=== PATIENT | female | born 1980 | race Caucasian/White ===

== ENCOUNTER 2023-04-04 07:17 | Inpatient (IN) | payer OTHER ==
[2023-04-04] MEDS ORDERED: SODIUM CHLORIDE 1,701 ML IV ONE (07:59)
[2023-04-04] MEDS ORDERED: KETOROLAC TROMETHAMINE 15 MG/ML VIAL IVPUSH ONE (08:01)
[2023-04-04] MEDS ORDERED: KETOROLAC TROMETHAMINE 15 MG/ML VIAL ONE (08:33)
[2023-04-04 09:11] LABS: VENOUS BASE EXCESS 1.2 mmol/L (-2-2); VENOUS O2 SATURATION 51.1 % (70-80); VENOUS PCO2 42.5 mmHg (38-52); VENOUS PH 7.406 (7.310-7.410)
[2023-04-04 09:13] LABS: INR 1.48 (0.83-1.09); PROTHROMBIN TIME (PATIENT) 17.1 SEC (9.7-13.0)
[2023-04-04 09:16] LABS: ACTIVATED PTT 28.2 SECONDS (25.2-36.5); EPI CELLS >36 /uL (0-25.1); HYALINE CASTS 0 /uL (0-3.1); PH,URINE 5.5 (5.0-8.0); URINE APPEARANCE CLOUDY; URINE BACTERIA >9,000 /uL (0-1359); URINE BILIRUBIN 1+ (NEGATIVE); URINE COLOR DK YELLOW; URINE GLUCOSE (UA) NEGATIVE (NEGATIVE); URINE KETONE 2+ (NEGATIVE); URINE LEUK ESTERASE 3+ (NEGATIVE); URINE NITRITE POSITIVE (NEGATIVE); URINE PROTEIN 2+ (NEGATIVE); URINE RBC 207 /uL (0-23.9); URINE UROBILINOGEN 4.0 E.U/dl mg/dL (0.2-1.0); URINE WBC 1933 /uL (0-25.8)
[2023-04-04 09:18] LABS: BASO % 0.2 % (0-2.0); CHLORIDE 102 mmol/L (98-107); HEMATOCRIT 30.8 % (32.4-45.2); HEMOGLOBIN 10.5 GM/dL (10.7-15.3); LYMPH % 7.1 % (8-40); MCH 31.4 pg (25.7-33.7); MCHC 34.1 g/dl (32.0-36.0); MEAN CELL VOLUME 91.9 fl (80-96); MEAN PLT VOLUME 8.3 fl (7.5-11.1); MONO % 10.6 % (3.8-10.2); NEUT % 82.1 % (42.8-82.8); PLATELET COUNT 180 10^3/uL (134-434); POTASSIUM 3.4 mmol/L (3.5-5.1); RBC 3.35 M/mm3 (3.60-5.2); RDW 12.3 % (11.6-15.6); SODIUM 135 mmol/L (136-145); WHITE BLOOD COUNT 8.9 K/mm3 (4.0-10.0)
[2023-04-04 09:22] LABS: ALBUMIN 3.5 g/dl (3.4-5.0); ANION GAP 7 MMOL/L (8-16); CO2 26 mmol/L (21-32); GLUCOSE,RANDOM 110 mg/dL (74-106)
[2023-04-04 09:24] LABS: CREATININE 0.9 mg/dL (0.55-1.3); SGOT/AST 33 U/L (15-37); SGPT/ALT 51 U/L (13-61)
[2023-04-04 09:26] LABS: TOT PROT 7.6 g/dl (6.4-8.2)
[2023-04-04 09:28] LABS: ALK PHOS 55 U/L (45-117)
[2023-04-04] MEDS ORDERED: CEFTRIAXONE 2,000 MG in DEXTROSE 5%-WATER - 50 ML IVPB ONE (10:00)
[2023-04-04] MEDS ORDERED: CEFTRIAXONE 2 GM/100 ML BAG IVPB ONE (10:07)
[2023-04-04] MEDS ORDERED: DEXTROSE 5%-0.45% SALINE 1,000 ML IV SCH (14:15)
[2023-04-04] MEDS ORDERED: KETOROLAC TROMETHAMINE 15 MG/ML VIAL IVPUSH PRN (15:21)
[2023-04-04] MEDS ORDERED: ACETAMINOPHEN 1000 MG/100 ML BAG IVPB PRN (15:23)
[2023-04-04] MEDS ORDERED: ONDANSETRON 4 MG/2 ML VIAL IVPUSH PRN (16:37)
[2023-04-04] MEDS ORDERED: LACTATED RINGERS SOLUTION 1,000 ML/1,000 ML INFUS.BAG IV SCH (21:30)
[2023-04-04 22:46] VITALS: RESP 18
[2023-04-05] MEDS ORDERED: ENOXAPARIN NA (PORCINE) 40 MG/0.4 ML DISP.SYRIN SQ SCH (10:00)
[2023-04-05] MEDS: CEFTRIAXONE 1 GM in DEXTROSE 5%-WATER - 50 ML IVPB SCH (10:12)
[2023-04-05 11:07] LABS: BASO % 0.6 % (0-2.0); EOS % 0.3 % (0-4.5); HEMATOCRIT 29.1 % (32.4-45.2); HEMOGLOBIN 10.4 GM/dL (10.7-15.3); LYMPH % 12.8 % (8-40); MCH 32.3 pg (25.7-33.7); MCHC 35.9 g/dl (32.0-36.0); MEAN PLT VOLUME 8.2 fl (7.5-11.1); MONO % 7.2 % (3.8-10.2); NEUT % 79.1 % (42.8-82.8); PLATELET COUNT 161 10^3/uL (134-434); RBC 3.23 M/mm3 (3.60-5.2); RDW 12.8 % (11.6-15.6); WHITE BLOOD COUNT 8.1 K/mm3 (4.0-10.0)
[2023-04-05 11:38] LABS: POTASSIUM 3.2 mmol/L (3.5-5.1)
[2023-04-05 11:47] LABS: CALCIUM 8.7 mg/dL (8.5-10.1)
[2023-04-05 11:49] LABS: ALBUMIN 2.9 g/dl (3.4-5.0); BLOOD UREA NITROGEN 6.6 mg/dL (7-18); MAGNESIUM 2.1 mg/dL (1.8-2.4)
[2023-04-05 11:51] LABS: CREATININE 0.6 mg/dL (0.55-1.3); PHOSPHOROUS 1.9 mg/dL (2.5-4.9)
[2023-04-05 11:52] LABS: BILIRUBIN,TOTAL 0.5 mg/dL (0.2-1); TOT PROT 6.4 g/dl (6.4-8.2)
[2023-04-05] MEDS ORDERED: POTASSIUM CHLORIDE ORAL LIQUID 20 MEQ/15 ML PO ONE (12:50)
[2023-04-05] MEDS ORDERED: NAPH,MB-DB/K PH,MBDB POWDER PACKET PO ONE (12:50)
[2023-04-05] MEDS: KCL 10 MEQ IVPB 10 MEQ/100 ML INFUS.BAG IVPB SCH ×3 (13:11→15:27)
[2023-04-06] MEDS ORDERED: ACETAMINOPHEN 325 MG TABLET (FP) PO PRN (08:11)
[2023-04-06] MEDS ORDERED: KETOROLAC TROMETHAMINE 15 MG/ML VIAL IVPUSH PRN (08:11)
[2023-04-06] MEDS ORDERED: ENOXAPARIN NA (PORCINE) 40 MG/0.4 ML DISP.SYRIN SQ SCH (10:00)
[2023-04-06] MEDS: CEFTRIAXONE 1 GM in DEXTROSE 5%-WATER - 50 ML IVPB SCH (10:52)
[2023-04-06 11:21] LABS: HEMATOCRIT 27.8 % (32.4-45.2); HEMOGLOBIN 9.7 GM/dL (10.7-15.3); MCH 31.3 pg (25.7-33.7); MCHC 34.7 g/dl (32.0-36.0); MEAN PLT VOLUME 8.1 fl (7.5-11.1); PLATELET COUNT 189 10^3/uL (134-434); RBC 3.09 M/mm3 (3.60-5.2); RDW 12.6 % (11.6-15.6)
[2023-04-06 11:38] LABS: POTASSIUM 3.7 mmol/L (3.5-5.1)
[2023-04-06 11:42] VITALS: TEMP 98.8
[2023-04-06 11:58] LABS: ALBUMIN 2.8 g/dl (3.4-5.0); BLOOD UREA NITROGEN 6.2 mg/dL (7-18); CALCIUM 8.8 mg/dL (8.5-10.1)
[2023-04-06 11:59] LABS: MAGNESIUM 2.1 mg/dL (1.8-2.4)
[2023-04-06 12:01] LABS: CREATININE 0.5 mg/dL (0.55-1.3); PHOSPHOROUS 2.7 mg/dL (2.5-4.9)
[2023-04-06 12:03] LABS: BILIRUBIN,TOTAL 0.3 mg/dL (0.2-1); TOT PROT 6.6 g/dl (6.4-8.2)
[2023-04-06 14:16] VITALS: BMI 20.2
[2023-04-06 15:21] VITALS: BP 123/69; PULSE 99
== END 2023-04-06 17:07 | disposition home or self-care (01) | DRG 463 ==
LOC: JER 07:17 → JERBED 15:10 → J5S 16:17
PROVIDERS: ADMIT Internal Medicine; ATTEND Internal Medicine
DX: N13.6 Pyonephrosis (principal); E83.39 Other disorders of phosphorus metabolism; E87.6 Hypokalemia
CPT/HCPCS: 0241U-QW; 36415; 71045-TC-FY; 74176-TC; 76700-TC; 80053; 81003; 82550; 82553; 82728; 82803; 83540; 83550; 83605; 83735; 84100; 84466; 84484; 84703; 85025; 85027; 85045; 85610; 85730; 86850; 86900; 86901; 87040; 87086; 87186; 93005; 93010; 99285-25